=== PATIENT | female | born 1985 | race Caucasian/White ===

== ENCOUNTER 2019-06-26 18:49 | Emergency (ER) | payer SELFPAY ==
[~2019-06-26] VITALS: Ht 167.7 cm; Wt 122.9 kg
[~2019-06-26 18:49] MED LIST: HYOS0.3710 PO; IBP600T1 PO; MICO25CR2 VG; OXYC-12 PO; PREN-115 PO
--- NOTE | 2019-06-26 19:33 | ED Upper Extremity ---
General Chief Complaint: Upper Extremity Stated Complaint: INJ RT HAND Nursing Triage Note: shut R hand in car door, wants to know if middle and ring finger are broken Nursing Sepsis Screen: No Definite Risk Source: patient Exam Limitations: no limitations History of Present Illness Date Seen by Provider: Jun 26, 2019 Time Seen by Provider: 19:02 Initial Comments To ER or with reports of pain to the middle and ring finger right hand after shutting it in a car door, she states the door closed all the way. Onset: just prior to arrival Severity: moderate Pain/Injury Location: right 3rd finger, right 4th finger Method of Injury: direct blow Modifying Factors: Worse With Movement Allergies and Home Medications Allergies Coded Allergies: No Known Drug Allergies (Unverified , 11/11/11) Patient Home Medication List Home Medication List Reviewed: Yes Review of Systems Constitutional: see HPI EENTM: see HPI Respiratory: no symptoms reported Cardiovascular: no symptoms reported Genitourinary: no symptoms reported Musculoskeletal: see HPI Skin: no symptoms reported Psychiatric/Neurological: No Symptoms Reported Past Hdwqhuv-Luqeqv-Ldtdub Hx Patient Social History Alcohol Use: Denies Use Recreational Drug Use: No 2nd Hand Smoke Exposure: No Recent Foreign Travel: No Contact w/Someone Who Travel: No Recent Infectious Disease Expo: No Recent Hopitalizations: No Immunizations Up To Date Tetanus Booster (TDap): More than 5yrs PED Vaccines UTD: No Seasonal Allergies Seasonal Allergies: No Past Medical History Surgeries: No Respiratory: No Cardiac: No Neurological: No Last Menstrual Period: Jun 26, 2019 Reproductive Disorders: No Gastrointestinal: No Musculoskeletal: No Endocrine: No Cancer: No Psychosocial: No Integumentary: No Blood Disorders: No Adverse Reaction/Blood Tranf: No Physical Exam Vital Signs Vital Signs - First Documented 06/26/19 18:55 Temp 36.8 Pulse 88 Resp 18 B/P (MAP) 146/102 (117) Capillary Refill : Less Than 3 Seconds Height, Weight, BMI Height: 5'6" Weight: 200lbs. oz. 90.775775bj; 43.00 BMI Method:Stated General Appearance: WD/WN, no apparent distress HEENT: PERRL/EOMI, normal ENT inspection Respiratory: no respiratory distress, no accessory muscle use Shoulder: normal inspection, non-tender Elbow/Forearm: normal inspection, non-tender Wrist: Yes normal inspection, Yes non-tender Hand: Right, limited ROM, soft tissue tenderness (no open wounds, no ecchymosis at this time.) Neurologic/Psychiatric: alert, normal mood/affect, oriented x 3 Skin: normal color, warm/dry Progress/Results/Core Measures Results/Orders My Orders Orders - NOELLE YEN APRN Hand, Right, 3 Views (06/26/19 19:33) Vital Signs/I&O 06/26/19 18:55 Temp 36.8 Pulse 88 Resp 18 B/P (MAP) 146/102 (117) Blood Pressure Mean: 117 Departure Impression Primary Impression: Contusion of hand Qualified Codes: S60.221A - Contusion of right hand, initial encounter Disposition: HOME, SELF-CARE Condition: Stable Departure-Patient Inst. Decision time for Depature: 20:25 Referrals: [facility] (PCP/Family) Primary Care Physician Patient Instructions: Contusion (DC) Add. Discharge Instructions: 1. Return to ER for any concerns 2. See her doctor next week for recheck All discharge instructions reviewed with patient and/or family. Voiced understanding. NOELLE YEN APRN Jun 26, 2019 19:33
--- NOTE | 2019-06-26 20:03 | Diagnostic Imaging Report ---
HAND, RIGHT, 3 VIEWS COMPARISON: None available. INDICATION: Trauma, crush injury to fingers. TECHNIQUE: PA, oblique and lateral views of the hand. FINDINGS: No fracture or traumatic malalignment. No radiopaque foreign body. Joint spaces are well-maintained. No radiopaque foreign body. IMPRESSION: 1. No acute fracture or malalignment. Dictated by: Dictated on workstation # [id number]
[2019-06-26 20:32] VITALS: BP 138/98
== END 2019-06-26 20:32 | disposition home or self-care (01) ==
LOC: EDUNIT# 18:49 → ER 18:50
DX: S60.221A Contusion of right hand, initial encounter (principal); W23.1XXA Caught, crushed, jammed, or pinched between stationary objects, initial encounter
CPT/HCPCS: 73130

== ENCOUNTER 2019-09-19 19:12 | Emergency (ER) | payer SELFPAY ==
[~2019-09-19] VITALS: Ht 168 cm; Wt 123.6 kg
--- OUTSIDE RECORDS SUMMARY | 2019-09-19 19:19 | XMS REPORT ---
Author Author Dejah Carlson Organization [facility] Address [address] [place] [address] Care Team Providers Care Pullboat Engineer Name Role Phone HECTOR Carlson Unavailable PROBLEMS Type Condition ICD9-CM Code ZGB81-CN Code Onset Dates Condition S tatus SNOMED Code Problem History of irregular menstrual bleeding Z87.42 Active 320480402 Problem Encounter for counseling regarding contraception Z 30.9 Active 54683433 Problem Lumbago with sciatica, left side M54.42 Active 379656949 Problem Lumbago with sciatica, right side M54.41 Active 858800121398046 Problem Female hirsutism L68.0 Active 673 86213 Problem Body mass index (BMI) of 40.1-44.9 in adult Z68.41 Active 581787457 Problem BMI 40.0-44.9, adult Z68.41 Active 440846005 Problem Pre-diabetes R73.09 Active 7715749 ALLERGIES No Information ENCOUNTERS Encounter Location Date Diagnosis [facility] [address] [id number] [address] [place] [id number] Nov, Thrush, oral B37.0 and Tatto o reaction L92.3 [facility] [address] [id number] [address] [place] [phone] August, Pharyngitis due to other org anism J02.8 [facility] [address] [facility] [id number] [address] [place] [phone] August, Pharyngitis, unspecified isela ology J02.9 and Sore throat J02.9 [facility] [address] [facility] [id number] [address] [place] [phone] Jun, Lumbago with sciatica, left side M54.42 and Lumbago with sciatica, right side M54.41 [place] [address] [id number] 15 May, 2016 Pain with urination R30.9 an d Vaginal discharge N89.8 [place] [address] [address] Apr, Acute non-recurrent maxillar y sinusitis J01.00 ; Cough R05 and Pre- diabetes R73.09 [place] [address] [address] Feb, [place] [address] [address] 24 May, 2015 [place] [address] [id number] Apr, [place] [address] [address] Apr, Irregular menses N92.6 ; BMI 40.0-44.9, adult Z68.41 ; Pre-diabetes R73.09 ; Encounter for counseling regarding contraception Z30.9 and Family history of diabetes mellitus Z83.3 [place] [address] [address] 07 Apr, 2015 Amenorrhea N91.2 ; Female hi rsutism L68.0 and History of irregular menstrual bleeding Z87.42 [place] [address] [address] 06 Apr, 2015 Amenorrhea N91.2 ; Body mass index (BMI) of 40.1-44.9 in adult Z68.41 ; Female hirsutism L68.0 ; History of irregular menstrual bleeding Z87.42 ; Encounter for counseling regarding contraception Z30.9 and Weight gain R63.5 [place] [address] [address] Mar, 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 and Capsulitis M77.9 [facility] [address] [id number] [address] [place] [address] Jan, Foot pain, right M79.671 [facility] [address] [id number] [address] [place] [address] 15 Jan, 2015 Foot pain, right M79.671 [facility] [address] [id number] [address] [place] [address] 14 Jan, 2015 Foot pain, right M79.671 [facility] [address] [id number] [address] [place] [address] Jul, [facility] [address] [id number] [address] [place] [phone] Jul, [facility] [address] [id number] [address] [place] [phone] May, [facility] [address] [id number] [address] [place] [phone] May, [facility] [address] [id number] [address] [place] [phone] May, [facility] [address] [id number] [address] [place] [phone] May, [facility] [address] [id number] [address] [place] [phone] Apr, [facility] [address] [id number] [address] [place] [address] Apr, [facility] [address] [id number] [address] [place] [phone] Apr, [facility] [address] [id number] [address] [place] [phone] Apr, [facility] [address] [id number] [address] [place] [phone] Mar, [facility] [address] [id number] [address] [place] [phone] 29 Mar, 2014 [facility] [address] [id number] [address] [place] [address], [place] [address] 28 Mar, 2014 [facility] [address] [id number] [address] [place] [address], [place] [address] 24 Mar, 2014 [facility] [address] [id number] [address] [place] [address], [place] [address] Mar, [facility] [address] [id number] [address] [place] [address], [place] [address] Mar, [facility] [address] [id number] [address] [place] [address], [place] [address] Mar, [facility] [address] [id number] [address] [place] [address], [place] [address] Mar, [facility] [address] [id number] [address] [place] [address], [place] [address] 15 Mar, 2014 [facility] [address] [id number] [address] [place] [address], [place] [address] Mar, [facility] [address] [id number] [address] [place] [address], [place] [address] Mar, [facility] [address] [id number] [address] [place] [address], [place] [address] Mar, [facility] [address] [id number] [address] [place] [address], [place] [address] Nov, [facility] [address] [id number] [address] [place] [address], [place] [address] Nov, [facility] [address] [id number] [address] [place] [address], [place] [address] Apr, [facility] [address] [id number] [address] [place] [address], [place] [address] Mar, [facility] [address] [id number] [address] [place] [address], [place] [address] Mar, [facility] [address] [id number] [address] [place] [phone] Mar, [facility] [address] [id number] [address] [place] [phone] Mar, [facility] [address] [id number] [address] [place] [phone] Feb, [facility] [address] [id number] [address] [place] [phone] Feb, [facility] [address] [id number] [address] [place] [phone] August, [facility] [address] [id number] [address] [place] [phone] Mar, [facility] [address] [id number] [address] [place] [phone] Jan, [facility] [address] [id number] [address] [place] [phone] Jan, IMMUNIZATIONS No Known Immunizations SOCIAL HISTORY Never Assessed REASON FOR VISIT PLAN OF CARE VITAL SIGNS Height 66 in 2014-04-07 Weight 252.7 lbs 2014-04-07 Temperature 97.8 degrees Fahrenheit 2014-04-07 Heart Rate 79 bpm 2014-04-07 Respiratory Rate 18 2014-04-07 Blood pressure systolic 134 mmHg 2014-04-07 Blood pressure diastolic 79 mmHg 2014-04-07 MEDICATIONS No Known Medications RESULTS No Results PROCEDURES Procedure Date Ordered Result Body Site X-RAY EXAM OF KNEE, 1 OR 2 Apr 07, 2014 INSTRUCTIONS MEDICATIONS ADMINISTERED No Known Medications
--- OUTSIDE RECORDS SUMMARY | 2019-09-19 19:19 | XMS REPORT ---
Author Author [employer] [facility] [employer] [facility] Address [address] [address] Care Team Providers Care Assembler Faucets Name Role Phone RAMÓN SEBASTIAN Unavailable Unavailable RODRÍGUEZ VIZCARRA Unavailable Unavailable HARINI SHAH Unavailable Unavailable [facility] Unavailable CHIARA SCOTT Unavailable CHIARA SCOTT Unavailable ROLLY LANGE Unavailable HIPOLITO HINES Unavailable Migration, Doctor Unavailable Unavailable Migration, Doctor Unavailable Unavailable Migration, Doctor Unavailable Unavailable Migration, Doctor Unavailable Unavailable Migration, Doctor Unavailable Unavailable Migration, Doctor Unavailable Unavailable zzSANCHEZ, HECTOR Unavailable zzSANCHEZ, HECTOR Unavailable NEMO Oneill Unavailable zzSANCHEZ, HECTOR Unavailable zzSANCHEZ, HECTOR Unavailable zzSANCHEZ, HECTOR Unavailable zzSANCHEZ, HECTOR Unavailable [facility] PCP [phone] BETY GONSALES MD Unavailable Unavailable NOELLE YEN APRN Unavailable Unavailable PETROS CASTRO Unavailable zzARIELA WALKER Unavailable zzSANCHEZ, HECTOR Unavailable Unavailable Unavailable Unavailable Unavailable Unavailable Unavailable Unavailable Unavailable Allergies The data below is from unstructured sources Substance Reaction Event Type N.K.D.A. Info Not Available Non Drug Allergy Allergen Type Severity Reaction Status Last Updated No Known Drug Allergies Active 11/11/11 No Information Medications Current Medications Medication Ingredient Drug Dose Dates Status Sig Sig Care Class(es) (Normalized) (Original) Provid er amoxicillin amoxicillin Penicillin- 500 mg 09-27-19 Active no Amoxicillin no 500 mg oral Translation class 18 - information 500 mg name capsule (1 s: [ Antibacteri 10-07-19 Orally every source.) Amoxicillin al 18 8 hrs 1 500 mg] capsule 8h August, Sep, 10 day(s) Active azithromyci Azithromyci Macrolide 500 mg 04-26-20 Active take 2 Azithromycin no n 250 mg n Antimicrobi 14 tablets by 250 mg 2 nam e oral tablet Translation al mouth once Tablet by (1 source.) s: [ daily, then Oral route Azithromyci take 1 on day 1 n 250 mg] tablet by then take 1 mouth, then daily for 4 take 1 days Mar, tablet by 2013 Active mouth once daily cyclobenzap cyclobenzap Muscle 10 mg 05-28-19 Active no cyc lobenzapr no rine rine Relaxant 15 information ine 10 mg 1 na me hydrochlori Translation tablet 1 de 10 mg s: [ time per day oral tablet cyclobenzap PRN Apr, (1 source.) rine 10 mg] 2014 Active mupirocin Mupirocin RNA 2 % 05-28-19 Active no Bactrob an 2 no 0.02 mg/mg Translation Synthetase 15 information % 1 favio by name nasal s: [ Inhibitor Topical ointment (1 Bactroban 2 Antibacteri route 2 source.) %] al times per day for 14 day(s) Apr, Active nabumetone nabumetone Nonsteroida 500 mg 07-04-19 Active no Nabumetone no 500 mg oral Translation l 18 - information 500 mg name tablet (1 s: [ Anti-inflam 09-02-19 Orally Twice source.) Nabumetone matory Drug 18 a day 1 500 mg] tablet 12h Jun, August, 30 day(s) Active nystatin nystatin Polyene 758547 12-19-19 Active take 4 mL by [place] statin no [id number] Translation Antifungal [IU]/m 18 - mouth four [id number] na me unt/ml oral s: [ L 01-02-20 times daily UNIT/ML suspension Nystatin 18 Mouth/Throat (1 source.) [id number] Four times a UNIT/ML] day 4 ml 6h Nov, Dec, 14 days Active predniSONE predniSONE Corticoster 40 mg 07-04-19 Active no PredniSONE no 20 mg oral Translation oid 18 - information 20 mg Orall y name tablet (1 s: [ 07-09-19 Once a day 2 source.) PredniSONE 18 tablets 24h 20 mg] Jun, Jun, 05 days Active sulfamethox Sulfamethox Dihydrofola 05-28-19 Active take 1 Bactr im DS no azole 800 azole / te 15 tablet by 800-160 mg 1 nam e mg / Trimethopri Reductase mouth twice tablet by trimethopri m Inhibitor daily Oral route 2 m 160 mg Translation Antibacteri times per oral tablet s: [ al, day for 10 (1 source.) Bactrim DS Sulfonamide day(s) 30 800-160 mg] Antimicrobi Apr, 2014 al Active Completed/Discontinued Medications Medication Ingredient Drug Dose Dates Status Sig Sig Care Class(es) (Normalized) (Original) Provid er no guaiFENesin no 05-03-19 no no Mucinex D no information information 17 informat information 120-1200 MG name (1 source.) ion Orally every 12 hrs 1 tablet as needed 12h Apr, Not-Taking no Miconazole no 12-16-19 Complete no Miconazole no information Nitrate information 12 - d information Nitrat e name (1 source.) 04-11-20 Discontinued 12 0 VAGINAL Bedtime 3 December 16, 2011 12:44pm April 11, 2012 1 APPLICATORFU L Problems Problem Normalized Date Last Normalized Normalized Provider Fa cility Classification Problem(s) Recorded Problem Problem Sta tus Duration Unclassified Body mass Chronic Active ROLLY LANGE Commu nittram (20 sources.) index 40+ - 30215 [facility] severely obese [facility] Translations: [place] ([address]258) [ Body mass index (BMI) of 40.1-44.9 in adult, BMI 40.0-44.9, adult, Body mass index (BMI) of 40.1-44.9 in adult, BMI 40.0-44.9, adult] Mycoses (17 Candidal Episodic Active HIPOLITO RICHARD Community sources.) stomatitis [facility] [address] [facility] Translations: [facility] [ - Thrush, [place] ([address]78) oral B37.0, - Thrush, oral B37.0] External cause Caught, Episodic Active NOELLE YEN [facility] Via codes: Other crushed, COLLECTION SUPPORT SPECIALIST [facility] specified and jammed, or Hospital - classifiable pinched [place] (1 source.) between (52039) stationary objects, initial encounter Superficial Contusion of Episodic Active NOELLE YEN [facility] Via injury; hand [employer]LE[employer] SU[employer] [facility] contusion (3 Translations: Hospital - sources.) [ CONTUSION OF [place] RIGHT HAND, (38782) INITIAL ENCOUNT] Other lower Cough Episodic Active NOELLE YEN , [facility] Via respiratory COLLECTION SUPPORT SPECIALIST [facility] disease (1 Hospital - source.) [place] (34983) Other lower Cough Episodic Active CHIARA Silva y respiratory Translations: [address] [facility] disease (20 [ - Cough R05, of [place] sources.) - Cough R05] [place] (37698) Other skin Female Episodic Active Doctor Community disorders (12 hirsutism [facility] sources.) Translations: of [facility] [ Female [place] (70064) hirsutism] Other skin Foreign body Episodic Active CELESTE Communit y disorders (17 granuloma of [facility] [address] [facility] sources.) the skin and of [facility] subcutaneous [place] (49047) tissue Translations: [ - Tattoo reaction L92.3, - Tattoo reaction L92.3] Other female H/O: Episodic Active ROLLY LANGE [facility] ity genital inter-menstrua [address] [facility] disorders (19 l bleeding of [facility] sources.) Translations: [place] (57516) [ History of irregular menstrual bleeding, History of irregular menstrual bleeding] Acquired foot Hallux valgus Chronic Active PETROS MATTHEW Community deformities (3 (acquired), [address] Health [facility] sources.) unspecified of [facility] foot [place] (14804) Translations: [ - 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] Spondylosis; Lumbago no information Active Doctor Tyler walls intervertebral co-occurrent [facility] disc with of [facility] disorders; right-side [place] (44289) other back sciatica problems (9 Translations: sources.) [ Lumbago with sciatica, right side] Spondylosis; Lumbago with Episodic Active CHIARA SONIA Com munity intervertebral sciatica, left [address] [facility] disc side of [facility] disorders; Translations: [place] (38270) other back [ - Lumbago problems (20 with sciatica, sources.) left side M54.42, Lumbago with sciatica, left side, Lumbago with sciatica, left side, - Lumbago with sciatica, right side M54.41, Lumbago with sciatica, right side, Lumbago with sciatica, right side, - Lumbago with sciatica, left side M54.42, - Lumbago with sciatica, right side M54.41, Lumbago with sciatica, left side, Lumbago with sciatica, right side] Other female Other Episodic Active ROLLYCARTER LANGE [facility] ity genital specified [address] [facility] disorders (19 noninflammator of [facility] sources.) y disorders of [place] (58621) vagina Translations: [ - Vaginal discharge N89.8, - Vaginal discharge N89.8] Other Pain in right Episodic Active [facility] connective foot [address] [facility] tissue disease Translations: of [facility] (20 sources.) [ - Foot pain, [place] (77071) right M79.671, - Foot pain, right M79.671] Procedures Procedure Normalized Procedure Procedure Result Performer Facility Date 04-20-2014 Antibody mycoplsm no information no name [facility] (82511) 04-20-2014 Blood count complete no information no name [facility] auto&auto difrntl wbc [facility] (81354) 04-20-2014 Collection venous no information no name [facility] blood venipuncture [facility] (33005) 04-20-2014 Comprehensive no information no name [facility] metabolic panel [facility] (48609) 02-10-2015 Diagnostic radiologic no information HARINI Romo [facility] - examination [facility] 02-10-2015 [place] (46885) - 02-10-2015 04-20-2014 Heterophile antibodies no information no name [facility] screen [facility] (72895) 09-26-2017 Iaadiadoo no information no name [facility] ealth streptococcus group a [facility] (11792) 09-24-2017 Iaadiadoo no information no name [facility] eaprovidence hospital streptococcus group a [facility] (27042) 07-03-2017 Ketorolac tromethamine no information no name inj [facility] (86953) 06-26-2019 Radiography of hand no information no name [facility] (52379) 04-07-2014 Radiologic examination no information no name knee 1/2 views [facility] (92288) 07-03-2017 Therapeutic no information no name [facility] hospital prophylactic/dx [facility] injection subq/im [place] (69908) 12-21-2013 Urnls dip stick/tablet no information no name rgnt auto w/o [facility] (78575) Immunizations Normalized Immunization Date Notes Care Provider Facili ty Immunization TORADOL (IM) 60 07-03-2017 - no information CHIARA SCOTT 14851 MG/2ML (UP TO 15 MG) 07-03-2017 [facility] st Translations: [ [place] (00301) TORADOL (IM) 60 MG/2ML (UP TO 15 MG)] Results Test Name Value Interpretation Reference Range Date Time Fa cility (Normalized) (Normalized) (Medline Reference) strep a (in house) on null STREP A (IN Negative (no code) [facility] (07092) STREP A (IN + (no code) [facility]) [facility] (43764) STREP A (IN [id number] (no code) [facility] (19542) STREP A (IN 01/26/2018 (no code) [facility] (02213) strep a (in house) on 2017-09-24 STREP A (IN Negative (no code) 09-24-2017 [facility]) 13:00-0400 [facility] (70049) STREP A (IN + (no code) 09-24-2017 [facility]) 13:00-0400 [facility] (64974) STREP A (IN [id number] (no code) 09-24-2017 [facility]) 13:00-0400 [facility] (87075) STREP A (IN [id number] (no code) 09-24-2017 [facility]) 13:00-0400 [facility] (21394) other on 2017-09-24 Exp date [id number] (no code) [facility] (56409) Lot # Negative (no code) [facility] (05051) imm/path on 2016-06-16 Bacteria Note (no code) 06-16-2016 Not Available identified Aer 17:34-0500 (90912) cx Nom (Genital specimen) other on 2016-05-04 Albumin/Globulin 1.7 {ratio} (no code) 1 - 2.5 {ratio} 7 Not Available [Mass ratio] 06:59-0500 (22888) Cholesterol in 18 mg/dL (no code) 05-04-2016 Not Availab le VLDL [Mass/Vol] 07:21-0500 (07941) Erythrocyte 13.5 % (no code) 11.6 - 14.6 % 05-04-2016 Not Av ailable distribution 06:02-0500 (62156) width (RBC) [Ratio] Globulin (S) 2.5 g/dL (no code) 2 - 3.5 g/dL 05-04-2016 Not Av ailable [Mass/Vol] 06:59-0500 (06686) Immature 0.0 10*3/uL (no code) 0 - 0.2 10*3/uL 05-04-2016 Not Available granulocytes 06:02-0500 (79169) (Bld) [#/Vol] Immature 0 % (no code) 0 - 0.5 % 05-04-2016 Not Availabl e granulocytes/100 06:02-0500 (69194) WBC (Bld) MCHC (RBC) 32.1 g/dL (no code) 32 - 36 g/dL 05-04-2016 Not Avai lable [Mass/Vol] 06:02-0500 (80466) metabolic panel on 2016-05-04 Albumin 4.3 g/dL (no code) 3.4 - 5.4 g/dL 05-04-2016 Not Mckenzie ilable [Mass/Vol] 06:59-0500 (29553) ALP [Catalytic 88 U/L (no code) 44 - 147 U/L 05-04-2016 Not Available activity/Vol] 07:010500 (13964) ALT [Catalytic 18 U/L (no code) 4 - 40 U/L 05-04-2016 Not Av ailable activity/Vol] 07:010500 (68106) AST [Catalytic 19 U/L (no code) 10 - 34 U/L 05-04-2016 Not A vailable activity/Vol] 06:59-0500 (87656) Bilirubin 0.3 mg/dL (no code) 0.1 - 1.2 mg/dL 05-04-2016 Not Av ailable [Mass/Vol] 06:59-0500 (45689) Calcium 9.1 mg/dL (no code) 8.5 - 10.2 mg/dL 05-04-2016 Not A vailable [Mass/Vol] 06:59-0500 (39169) Chloride 101 mmol/L (no code) 95 - 106 mmol/L 05-04-2016 Not A vailable [Moles/Vol] 06:51-0500 (46524) CO2 [Moles/Vol] 25 mmol/L (no code) 23 - 29 mmol/L 05-04-2016 N ot Available 06:590500 (36318) Creatinine 0.80 mg/dL (no code) 05-04-2016 Not Available [Mass/Vol] 07:040500 (79515) GFR/1.73 sq M 116 (no code) 90 - 120 05-04-2016 Not Avai lable predicted among mL/min/{1.73_m2} mL/min/{1.73_m2} 07:040500 (09755) blacks MDRD (S/P/Bld) [Vol rate/Area] GFR/1.73 sq M 101 (no code) 90 - 120 05-04-2016 Not Avai lable predicted among mL/min/{1.73_m2} mL/min/{1.73_m2} 07:040500 (22537) non-blacks MDRD (S/P/Bld) [Vol rate/Area] Glucose 101 mg/dL (H) 60 - 125 mg/dL 05-04-2016 Not Mckenzie ilable [Mass/Vol] 07:01-0500 (60970) Potassium 4.8 mmol/L (no code) 3.7 - 5.2 mmol/L 05-04-2016 Not Available [Moles/Vol] 06:51-0500 (78282) Protein 6.8 g/dL (no code) 6.4 - 8.3 g/dL 05-04-2016 Not Mckenzie ilable [Mass/Vol] 06:59-0500 (33080) Sodium 140 mmol/L (no code) 135 - 145 mmol/L 05-04-2016 Not Available [Moles/Vol] 06:51-0500 (22156) Urea nitrogen 10 mg/dL (no code) 7 - 20 mg/dL 05-04-2016 Not A vailable [Mass/Vol] 06:59-0500 (59716) Urea 13 mg/mg (no code) 6 - 22 mg/mg 05-04-2016 Not Avail able nitrogen/Creatin 07:04-0500 (05906) ine [Mass ratio] hematology on 2016-05-04 Basophils (Bld) 0.1 10*3/uL (no code) 0 - 0.3 10*3/uL 05-04-2016 Not Available [#/Vol] 06:02-0500 (63992) Basophils/100 1 % (no code) 0.5 - 1 % 05-04-2016 Not Avai lable WBC (Bld) 06:02-0500 (46592) Eosinophils 0.4 10*3/uL (no code) 0.05 - 0.5 05-04-2016 Not Mckenzie ilable (Bld) [#/Vol] 10*3/uL 06:02-0500 (58005) Eosinophils/100 5 % (no code) 1 - 4 % 05-04-2016 Not Av ailable WBC (Bld) 06:02-0500 (91130) Hematocrit (Bld) 45.2 % (no code) 36.1 - 50.3 % 05-04-2016 N ot Available [Volume 06:020500 (82949) fraction] Hemoglobin (Bld) 14.5 g/dL (no code) 12.1 - 17.2 g/dL 05-04-2016 Not Available [Mass/Vol] 06:02-0500 (98019) Lymphocytes 3.2 10*3/uL (H) 0.9 - 2.9 05-04-2016 Not Avai lable (Bld) [#/Vol] 10*3/uL 06:02-0500 (82865) Lymphocytes/100 44 % (no code) 20 - 40 % 05-04-2016 Not Av ailable WBC (Bld) 06:02-0500 (77963) MCH (RBC) 27.4 pg (no code) 27 - 31 pg 05-04-2016 Not Availab le [Entitic mass] 06:020500 (47791) MCV (RBC) 85 fL (no code) 80 - 100 fL 05-04-2016 Not Availa ble [Entitic vol] 06:02-0500 (44317) Monocytes (Bld) 0.6 10*3/uL (no code) 0.3 - 0.9 05-04-2016 Not Available [#/Vol] 10*3/uL 06:02-0500 (27880) Monocytes/100 8 % (no code) 2 - 8 % 05-04-2016 Not Avai lable WBC (Bld) 06:02-0500 (88085) Neutrophils 3.1 10*3/uL (no code) 1.7 - 7 10*3/uL 05-04-2016 No t Available (Bld) [#/Vol] 06:02-0500 (96497) Neutrophils/100 42 % (no code) 40 - 60 % 05-04-2016 Not Av ailable WBC (Bld) 06:02-0500 (99206) Platelets (Bld) 297 10*3/uL (no code) 150 - 450 05-04-2016 Not Available [#/Vol] 10*3/uL 06:02-0500 (38552) RBC (Bld) 5.29 10*6/uL (H) 4.2 - 6.1 05-04-2016 Not Avail able [#/Vol] 10*6/uL 06:02-0500 (31703) WBC (Bld) 7.3 10*3/uL (no code) 3.5 - 10.5 05-04-2016 Not Avail able [#/Vol] 10*3/uL 06:02-0500 (11859) cardiac on 2016-05-04 Cholesterol 158 mg/dL (no code) 180 - 200 mg/dL 05-04-2016 Not Available [Mass/Vol] 07:170500 (60338) Cholesterol in 35 mg/dL (L) 05-04-2016 Not Availab le HDL [Mass/Vol] 07:0500 (80187) Cholesterol in 105 mg/dL (H) 0 - 100 mg/dL 05-04-2016 Not Available LDL [Mass/Vol] 07:0500 (30545) Triglyceride 90 mg/dL (no code) 0 - 150 mg/dL 05-04-2016 Not A vailable [Mass/Vol] 07:0500 (36905) Vital Signs Vital Sign Value Interpretation Reference Date Time Care Prov ider Facility (Normalized) (Normalized) Range BMI (Body Mass 40.6 kg/m2 (no code) 15 - 25 kg/m2 12-18-2017 SIMON RICHARD Community Index) 18:15-[address] [place] [address] (56154) BMI (Body Mass 38.73 kg/m2 (no code) 15 - 25 kg/m2 09-26-2017 W LUIS MANUEL SCOTT Community Index) 15:40-[address] [place] [address] (00371) BMI (Body Mass 39.39 kg/m2 (no code) 15 - 25 kg/m2 09-24-2017 M JOSE JUAN LANGE Community Index) 10:20-[address] [place] [address] (03489) BMI (Body Mass 38.38 kg/m2 (no code) 15 - 25 kg/m2 07-03-2017 W LUIS MANUEL SCOTT Community Index) 14:45-[address] [place] [address] (75370) Body height 167.64 cm (no code) cm 04-07-2014 HECTOR Co [facility]mun[facility] 14:13-[address] ([address]761) Body height 167.64 cm (no code) cm 05-15-2011 PETROS LEVY [facility] 12:00-[address] [place] [address] (78827) Body 97.9 [degF] (no code) 97.8 - 99.0 12-18-2017 [facility] 18:15-[address] [address] [place] [address] nter [facility] (79974) Body 98.8 [degF] (no code) 97.8 - 99.0 09-26-2017 CHIARA [facility] Temperature [degF] 15:40-0400 18078 [facility] (85571) Body 97.8 [degF] (no code) 97.8 - 99.0 09-24-2017 [facility] Temperature [degF] 10:20-[id number] [place], [place] [address]e r [facility] (25295) Body 98.1 [degF] (no code) 97.8 - 99.0 07-03-2017 [facility] Temperature [degF] 14:45-[address] [place] [address] (15254) Body 98 [degF] (no code) 97.8 - 99.0 05-28-2014 HECTOR [facility] Temperature [degF] 09:20-0500 [facility] [address] ([address]662) Body 99.2 [degF] (no code) 97.8 - 99.0 04-20-2014 [facility] [[facility] 17:20-0500 [facility] [address] (94523) Body 97.8 [degF] (no code) 97.8 - 99.0 04-07-2014 [facility] temperature [degF] 14:13-0500 [facility] [address] (38616) Body 97.4 [degF] (no code) 97.8 - 99.0 12-21-2013 NEMO [facility] Temperature [degF] 17:06-0400 [address] [facility] (76273) Body 97.3 [degF] (no code) 97.8 - 99.0 05-15-2011 PETROS FELICIANO [facility] temperature [degF] 12:00-[id number] [place] [address] (59032) Body weight 115.67 kg (no code) kg 05-28-2014 HECTOR [facility] 09:200500 [address] (96992) Body weight 113.49 kg (no code) kg 04-20-2014 HECTOR [facility] 17:200500 [address] (16963) Body weight 114.62 kg (no code) kg 04-07-2014 HECTOR Co [facility] 14:130500 [address] (11504) Body weight 109.05 kg (no code) kg 12-21-2013 NEMOCHAYITO martinezROSA [facility] 17:06-[address] [place] [address] (32909) Body weight 79.02 kg (no code) kg 05-15-2011 PETROS MERCEDES [facility] 12:000500 [address] [place] [address] (40514) Height 167.64 cm (no code) cm 12-18-2017 HIPOLITO [facility] 18:15-[address] [place] [address] (57803) Height 167.64 cm (no code) cm 09-26-2017 CHIARA Romo [facility] 15:40-[address] [place] [address] (70740) Height 167.64 cm (no code) cm 09-24-2017 [facility] 10:20-[address] [place] [address] (67579) Height 167.64 cm (no code) cm 07-03-2017 CHIARA Romo [facility] 14:45-[address] [place] [address] (53334) Height 167.64 cm (no code) cm 05-28-2014 HECTOR Commu nity 09:200500 [address] (30783) Height 167.64 cm (no code) cm 04-20-2014 HECTOR Commu nity 17:200500 [address] ([address]) Height 167.64 cm (no code) cm 12-21-2013 NEMO Oneill [facility] 17:06-[address] [place] [address] (28818) Weight 114.13 kg (no code) kg 12-18-2017 HIPOLITO danielle 18:15-[address] [place] [address] (20737) Weight 108.86 kg (no code) kg 09-26-2017 CHIARA Romo [facility] 15:40-[address] [place] [address] (32996) Weight 110.72 kg (no code) kg 09-24-2017 ROLLY LANGE [facility] 10:20-[address] [place] [address] (81786) Weight 107.87 kg (no code) kg 07-03-2017 CHIARA SCOTT Clarissa [facility] 14:45-[address] [place] [address] (98844) Interventions No Information Plan of Treatment Normalized Care Care Detail Care Activity Date Care Provider F acility Activity Patient Education Contusion (DC) no information [facility] [address] [place] [address] (60989) Patient referral no information no information [facility] [facility] [address] [place] [address] (34927) Goals Patient Goal Desired Goal no information no information Social History Normalized Code Original Code Date Value no information no information 04-19-2014 Denies Use no information no information 07-06-2012 No no information no information 07-09-2012 Denies Sex Assigned At Sex Assigned At no information F emale Functional Status The data below is from unstructured sourcesNo functional status results.No Functional Status information availableNo Functional Status information available Mental Status The data below is from unstructured sourcesNo Mental Status Information Available Encounters Encounter Normalized Encounter Encounter Diagnosis Care Provi kaveh Organization Date Type 09-26-2017 (ACUTE) Acute Visit Acute pharyngitis due CHIARA SLATER [facility] other specified phone) (no phone) 09-26-2017 organisms - 09-26-2017 09-24-2017 (ACUTE) Acute Visit Acute pharyngitis, ROLLY Roland ([facility] unspecified phone) ROLLY [place] (no kizzy ne) 09-24-2017 (no phone) - 09-24-2017 05-04-2015 (ACUTE) Acute Visit AmenorrheaSEBASTIAN [facility] [place] - unspecified (no phone) (no phone) 05-04-2015 - 05-04-2015 02-09-2015 (ACUTE) Acute Visit Pain in right foot HARINI MADL (no phone) [facility] [place] - (no phone) 02-09-2015 - 02-09-2015 04-15-2015 (CON20) Consult Hallux valgus RODRÍGUEZ VIZCARRA (no phone ) [facility] [place] - (acquired), (no phone) 04-15-2015 unspecified foot - 04-15-2015 06-22-2015 (DM-ED F/U) Diabetes no information HARINI MADL (no phone) [facility] [place] - Education Follow-up (no phone) 06-22-2015 - 06-22-2015 03-27-2016 (DM-MGMT) Diabetes no information HARINI MADL (no p gene) [facility] [place] - Management (no phone) 03-27-2016 - 03-27-2016 05-05-2015 (LAB) lab Amenorrhea, SEBASTIAN Rodriguez [facility] [place] - unspecified (no phone) (no phone) 05-05-2015 - 05-05-2015 06-13-2016 (SD ACUTE) Same Day Painful micturition, JACYLN SANDRA Lewis (no phone) [facility] [place] - Acute unspecified (no phone) 06-13-2016 - 06-13-2016 05-03-2016 (SD ACUTE) Same Day Acute maxillary MATTHIAS David ERS (no [facility] [place] - Acute sinusitis, unspecified phone) (no phone) 05-03-2016 - 05-03-2016 12-18-2017 (WALK-IN) Walk-In Care Candidal stomatitis NATALIE HINES (no [facility] - phone) CARE (no phone) 12-18-2017 - 12-18-2017 07-03-2017 (WALK-IN) Walk-In Care Lumbago with sciatica, DANY SCOTT (no [facility] - left side phone) CARE (no phone) 07-03-2017 - 07-03-2017 05-11-2015 (WH) Womens Health Irregular SEBASTIAN garciaCarlosJIM [facility] [place] - Visit menstruation, (no phone) (no phone) 05-11-2015 unspecified - 05-11-2015 02-10-2015 (XRAY) xray Pain in right foot HARINI MADL (no phon e) [facility] [place] (no phone) 05-26-2015 [facility] [place] no information SEBASTIAN Murray MARILEEJIM [facility] [place] - (no phone) (no phone) 05-26-2015 - 05-26-2015 02-14-2015 [facility] [place] Pain in right foot HARINI MAD L (no phone) [facility] [place] - (no phone) 02-14-2015 - 02-14-2015 08-10-2014 [facility] [place] no information Doctor Migrati on (no [facility] [place] - phone) (no phone) 08-10-2014 - 08-10-2014 08-09-2014 [facility] [place] no information Doctor Migrati on (no [facility] [place] - phone) (no phone) 08-09-2014 - 08-09-2014 06-17-2014 [facility] [place] no information ARIELA GALO (no [facility] [place] - phone) Doctor (no phone) 06-17-2014 Migration (no phone) - ARIELA Palacios (no 06-17-2014 phone) Doctor Migration (no phone) ARIELA Palacios (no phone) Doctor Migration (no phone) 05-31-2014 [facility] [place] no information Doctor Migrati on (no [facility] [place] - phone) HECTOR Carlson (no phone) 05-31-2014 (no phone) Doctor - Migration (no phone) 05-31-2014 HECTORZOE Carlson (no phone) Doctor Migration (no phone) HECTOR Carlson (no phone) 05-28-2014 [facility] [place] no information HECTOR zzSANCHE Z (no [facility] [place] - phone) Doctor (no phone) 05-28-2014 Migration (no phone) - HECTOR zzSANCHEZ (no 05-28-2014 phone) Doctor Migration (no phone) HECTOR zzSANCHEZ (no phone) Doctor Migration (no phone) 05-04-2014 [facility] [place] no information HECTOR zzSANCHE Z (no [facility] [place] - phone) Doctor (no phone) 05-04-2014 Migration (no phone) - HECTRO zzSANCHEZ (no 05-04-2014 phone) Doctor Migration (no phone) HECTOR zzSANCHEZ (no phone) Doctor Migration (no phone) 04-26-2014 [facility] [place] no information HECTOR zzSANCHE Z (no [facility] [place] - phone) Doctor (no phone) 04-26-2014 Migration (no phone) - HECTOR zzSANCHEZ (no 04-26-2014 phone) Doctor Migration (no phone) HECTOR zzSANCHEZ (no phone) Doctor Migration (no phone) 04-25-2014 [facility] [place] no information Doctor Migrati on (no [facility] [place] - phone) (no phone) 04-25-2014 - 04-25-2014 04-21-2014 [facility] [place] no information Doctor Migrati on (no [facility] [place] - phone) (no phone) 04-21-2014 - 04-21-2014 04-20-2014 [facility] [place] no information HECTOR zzSANCHE Z (no [facility] [place] - phone) Doctor (no phone) 04-20-2014 Migration (no phone) - HECTOR zzSANCHEZ (no 04-20-2014 phone) Doctor Migration (no phone) HECTOR zzSANCHEZ (no phone) Doctor Migration (no phone) 04-15-2014 [facility] [place] no information HECTOR zzSANCHE Z (no [facility] [place] - phone) Doctor (no phone) 04-15-2014 Migration (no phone) - HECTOR zzSANCHEZ (no 04-15-2014 phone) Doctor Migration (no phone) HECTOR Carlson (no phone) Doctor Migration (no phone) 04-12-2014 [facility] [place] no information Doctor Migrati on (no [facility] [place] - phone) (no phone) 04-12-2014 - 04-12-2014 04-08-2014 [facility] [place] no information Doctor Migrati on (no [facility] [place] - phone) (no phone) 04-08-2014 - 04-08-2014 04-07-2014 [facility] [place] no information HECTOR Garcia (no [facility] [place] - phone) Doctor (no phone) 04-07-2014 Migration (no phone) - HECTOR Carlson (no 04-07-2014 phone) Doctor Migration (no phone) HECTOR Carlson (no phone) Doctor Migration (no phone) 12-21-2013 [facility] [place] no information NEMO Oneill (no [facility] [place] - phone) Doctor (no phone) 12-21-2013 Migration (no phone) - NEMO Oneill (no 12-21-2013 phone) Doctor Migration (no phone) NEMO Oneill (no phone) Doctor Migration (no phone) 05-15-2011 [facility] [place] no information PETROS CASTRO (no [facility] [place] - phone) (no phone) 05-15-2011 - 05-15-2011 04-17-2011 [facility] [place] no information Doctor Migrati on (no [facility] [place] - phone) (no phone) 04-17-2011 - 04-17-2011 04-09-2011 [facility] [place] no information Doctor Migrati on (no [facility] [place] - phone) (no phone) 04-09-2011 - 04-09-2011 03-02-2011 [facility] [place] no information Doctor Migrati on (no [facility] [place] - phone) (no phone) 03-02-2011 - 03-02-2011 02-28-2011 [facility] [place] no information Doctor Migrati on (no [facility] [place] - phone) (no phone) 02-28-2011 - 02-28-2011 09-12-2009 [facility] [place] no information Doctor Migrati on (no [facility] [place] - phone) (no phone) 09-12-2009 - 09-12-2009 04-20-2009 [facility] [place] no information Doctor Migrati on (no [facility] [place] - phone) (no phone) 04-20-2009 - 04-20-2009 02-08-2009 [facility] [place] no information Doctor Migrati on (no [facility] [place] - phone) (no phone) 02-08-2009 - 02-08-2009 06-26-2019 Emergency department no information (no phone) [facility] c[facility] - patient visit [facility] (no phone) 06-26-2019 06-26-2019 Emergency department no information BETY CORBIN MD [facility] - patient visit (no phone) [facility] 06-26-2019 [facility] [employer] [facility] [facility] (no phone) (no phone) [facility] CANO (no phone) 09-26-2017 Patient encounter no information no name no or ganization name NEGATED Patient encounter no information no name no or ganization name 09-24-2017 07-03-2017 Patient encounter no information no name no or ganization name Medical Equipment The data below is from unstructured sourcesNo Medical Equipment Information available Payers Normalized Payer Value Self-pay no information ([id number]) Evaluation note Note Type Note Facility Evaluation No Assessments Information Available A scension note Via [facility] ([id number]) Summary Purpose eClinicalWorks SubmissioneClinicalWorks SubmissioneClinicalWorks SubmissioneClinicalWorks SubmissioneClinicalWorks SubmissioneClinicalWorks SubmissioneClinicalWorks SubmissioneClinicalWorks Submission Advance Directives Directive Response Recor ded Date/Time Advance Directives No 8:17pm Health Care Power of Mural Painter No 04/19/14 8:17pm Organ Donor Yes 04/19/14 8:17pm Resuscitation Status Full Code 04/19/14 8:17pm Advance Directive Response Recorded Date/Time Advance Directives No April conway 2019 6:59pm Health Care Power of Mural Painter No June 26, 2019 6:59pm Organ Donor Yes June 26, 2019 6:59pm Resuscitation Status Full Code June 26, 2019 6:59pm Discharge Instructions No hospital discharge instructions. Chief Complaint and Reason for Visit Chief Complaint Upper Extremity Reason for Visit [id number] Additional Source Comments This clinical document has been generated using [employer] software that has been certified by the Office of the National Coordinator for Health Information Technology (ONC 15.99.04.3023.Diam.[id number]) and the National Committee for Carton Inspector (NCQA, as an eMeasure certified technology). FOR RECORDS PERTAINING TO PATIENTS WHO ARE OR HAVE BEEN ENROLLED IN A CHEMICAL D EPENDENCY/SUBSTANCE ABUSE PROGRAM, SOME INFORMATION MAY BE OMITTED. This clinica l summary was aggregated from multiple sources. Caution should be exercised in using it in the provision of clinical care. This summary normalizes information from multiple sources, and as a consequence, information in this document may ma terially change the coding, format and clinical context of patient data. In larry tion, data may be omitted in some cases. CLINICAL DECISIONS SHOULD BE BASED ON T HE PRIMARY CLINICAL RECORDS. [employer] provides no warranty or guara ntee of the accuracy or completeness of information in this document.The followi ng information is based on time limited clinical information UNRECOGNIZED CONTENT PROVIDED BELOW FOR UNRECOGNIZED SECTION REASON FOR VISIT thrush BeenaN, Rash on Tattoo started in July [id number]
--- OUTSIDE RECORDS SUMMARY | 2019-09-19 19:19 | XMS REPORT ---
Author Author Dejah Palacios Organization [facility] Address [address] [place] [address] Care Team Providers Care Pharmacy Account Director Name Role Phone ARIELA Palacios Unavailable PROBLEMS Type Condition ICD9-CM Code DDO05-PF Code Onset Dates Condition S tatus SNOMED Code Problem History of irregular menstrual bleeding Z87.42 Active 843990858 Problem Encounter for counseling regarding contraception Z 30.9 Active 58135406 Problem Lumbago with sciatica, left side M54.42 Active 927579467 Problem Lumbago with sciatica, right side M54.41 Active 486051852617250 Problem Female hirsutism L68.0 Active 102 45288 Problem Body mass index (BMI) of 40.1-44.9 in adult Z68.41 Active 990357248 Problem BMI 40.0-44.9, adult Z68.41 Active 195079603 Problem Pre-diabetes R73.09 Active 0359953 ALLERGIES No Information ENCOUNTERS Encounter Location Date Diagnosis [facility] [id number] [place] [id number] Nov, Thrush, oral B37.0 and Tatto o reaction L92.3 [facility] [id number] [place] [id number] August, Pharyngitis due to other org anism J02.8 [facility] [address] [facility] [id number] [address] [place] [id number] August, Pharyngitis, unspecified isela ology J02.9 and Sore throat J02.9 [facility] IN [facility] [address] [facility] [id number] [address] [place] [address] Jun, Lumbago with sciatica, left side M54.42 and Lumbago with sciatica, right side M54.41 [place] [address] [id number] 15 May, 2016 Pain with urination R30.9 an d Vaginal discharge N89.8 [place] [address] [address] Apr, Acute non-recurrent maxillar y sinusitis J01.00 ; Cough R05 and Pre- diabetes R73.09 [place] [address] [id number] Feb, [place] [address] [id number] 24 May, 2015 [place] [address] [id number] Apr, [place] [address] [address] Apr, Irregular menses N92.6 ; BMI 40.0-44.9, adult Z68.41 ; Pre-diabetes R73.09 ; Encounter for counseling regarding contraception Z30.9 and Family history of diabetes mellitus Z83.3 [place] [address] [address] 07 Apr, 2015 Amenorrhea N91.2 ; Female hi rsutism L68.0 and History of irregular menstrual bleeding Z87.42 [place] [address] [id number] 06 Apr, 2015 Amenorrhea N91.2 ; Body mass index (BMI) of 40.1-44.9 in adult Z68.41 ; Female hirsutism L68.0 ; History of irregular menstrual bleeding Z87.42 ; Encounter for counseling regarding contraception Z30.9 and Weight gain R63.5 [place] [address] [id number] Mar, 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 and Capsulitis M77.9 [facility] [address] [id number] [address] [place] [address] Jan, Foot pain, right M79.671 [facility] [address] [id number] [address] [place] [id number] 15 Jan, 2015 Foot pain, right M79.671 [facility] [address] [id number] [address] [place] [address] Jan, Foot pain, right M79.671 [facility] [address] [id number] [address] [place] [address] Jul, [facility] [address] [id number] [address] [place] [address] Jul, [facility] [address] [id number] [address] [place] [address] May, [facility] [address] [id number] [address] [place] [address] May, [facility] [address] [id number] [address] [place] [id number] May, [facility] [address] [id number] [address] [place] [id number] May, [facility] [address] [id number] [address] [place] [id number] Apr, [facility] [address] [id number] [address] [place] [id number] Apr, [facility] [address] [id number] [address] [place] [phone] Apr, [facility] [address] [id number] [address] [place] [phone] Apr, [facility] [address] [id number] [address] [place] [id number] Mar, [facility] [address] [id number] [address] [place] [id number] 29 Mar, 2014 [facility] [address] [id number] [address] [place] [address], [place] [address] Mar, [facility] [address] [id number] [address] [place] [address], [place] [address] Mar, [facility] [address] [id number] [address] [place] [address], [place] [address] Mar, [facility] [address] [id number] [address] [place] [address], [place] [address] Mar, [facility] [address] [id number] [address] [place] [address], [place] [address] Mar, [facility] [address] [id number] [address] [place] [address], [place] [address] Mar, [facility] [address] [id number] [address] [place] [address], [place] [address] 15 Mar, 2014 [facility] [address] [id number] [address] [place] [address], [place] [address] Mar, [facility] [address] [id number] [address] [place] [address], [place] [address] Mar, [facility] [address] [id number] [address] [place] [address], [place] [address] Mar, [facility] [address] [id number] [address] [place] [address], [place] [address] Nov, [facility] [address] [id number] [address] [place] [address], [place] [address] Nov, [facility] [address] [id number] [address] [place] [address], [place] [address] Apr, [facility] [address] [id number] [address] [place] [address], [place] [address] Mar, [facility] [address] [id number] [address] [place] [address], [place] [address] Mar, [facility] [address] [id number] [address] [place] [id number] Mar, [facility] [address] [id number] [address] [place] [phone] Mar, [facility] [address] [id number] [address] [place] [id number] Feb, [facility] [address] [id number] [address] [place] [id number] Feb, [facility] [address] [id number] [address] [place] [id number] August, [facility] [address] [id number] [address] [place] [id number] Mar, [facility] [address] [id number] [address] [place] [phone] Jan, [facility] [address] [id number] [address] [place] [id number] Jan, IMMUNIZATIONS No Known Immunizations SOCIAL HISTORY Never Assessed REASON FOR VISIT PLAN OF CARE VITAL SIGNS MEDICATIONS No Known Medications RESULTS No Results PROCEDURES No Known procedures INSTRUCTIONS MEDICATIONS ADMINISTERED No Known Medications
--- OUTSIDE RECORDS SUMMARY | 2019-09-19 19:19 | XMS REPORT ---
Author Author Dejah CASTRO Organization [facility] Address [address] [place] [address] Care Team Providers Care Recruiting And Selection Consultant Name Role Phone PETROS CASTRO Unavailable PROBLEMS Type Condition ICD9-CM Code UHZ71-IA Code Onset Dates Condition S tatus SNOMED Code Problem History of irregular menstrual bleeding Z87.42 Active 338704608 Problem Encounter for counseling regarding contraception Z 30.9 Active 66647578 Problem Lumbago with sciatica, left side M54.42 Active 906715175 Problem Lumbago with sciatica, right side M54.41 Active 433472170701912 Problem Female hirsutism L68.0 Active 698 51995 Problem Body mass index (BMI) of 40.1-44.9 in adult Z68.41 Active 077949003 Problem BMI 40.0-44.9, adult Z68.41 Active 018438968 Problem Pre-diabetes R73.09 Active 5536841 ALLERGIES No Information ENCOUNTERS Encounter Location Date Diagnosis [facility] [address] [place] [id number] [address] [place] [id number] Nov, Thrush, oral B37.0 and Tatto o reaction L92.3 [facility] [id number] [address] [place] [address] August, Pharyngitis due to other org anism J02.8 [facility] [address] [facility] [address] [facility] [id number] [address] [place] [address] August, Pharyngitis, unspecified isela ology J02.9 and Sore throat J02.9 [facility] [address] [facility] [id number] [address] [place] [address] Jun, Lumbago with sciatica, left side M54.42 and Lumbago with sciatica, right side M54.41 [place] [address] [address] 15 May, 2016 Pain with urination R30.9 an d Vaginal discharge N89.8 [place] [address] [address] Apr, Acute non-recurrent maxillar y sinusitis J01.00 ; Cough R05 and Pre- diabetes R73.09 [place] [address] [address] Feb, [place] [address] [address] 24 May, 2015 [place] [address] [address] Apr, [place] [address] [address] Apr, Irregular menses N92.6 ; BMI 40.0-44.9, adult Z68.41 ; Pre-diabetes R73.09 ; Encounter for counseling regarding contraception Z30.9 and Family history of diabetes mellitus Z83.3 [place] [address] [address] 07 Apr, 2015 Amenorrhea N91.2 ; Female hi rsutism L68.0 and History of irregular menstrual bleeding Z87.42 [place] [address] [address] 06 Apr, 2015 Amenorrhea N91.2 ; Body mass index (BMI) of 40.1-44.9 in adult Z68.41 ; Female hirsutism L68.0 ; History of irregular menstrual bleeding Z87.42 ; Encounter for counseling regarding contraception Z30.9 and Weight gain R63.5 [place] [address] [address] Mar, 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 and Capsulitis M77.9 [facility] [address] [id number] [address] [place] [address] Jan, Foot pain, right M79.671 [facility] [address] [id number] [address] [place] [address] 15 Jan, 2015 Foot pain, right M79.671 [facility] [address] [id number] [address] [place] [address] Jan, Foot pain, right M79.671 [facility] [address] [id number] [address] [place] [address], [place] [address] Jul, [facility] [address] [id number] [address] [place] [address] Jul, [facility] [address] [id number] [address] [place] [address] May, [facility] [address] [id number] [address] [place] [address] May, [facility] [address] [id number] [address] [place] [address] May, [facility] [address] [id number] [address] [place] [address] May, [facility] [address] [id number] [address] [place] [address] Apr, [facility] [address] [id number] [address] [place] [address] Apr, [facility] [address] [id number] [address] [place] [address] Apr, [facility] [address] [id number] [address] [place] [address] Apr, [facility] [address] [id number] [address] [place] [address] Mar, [facility] [address] [id number] [address] [place] [address] 29 Mar, 2014 [facility] [address] [id number] [address] [place] [address], [place] [address] Mar, [facility] [address] [id number] [address] [place] [address], [place] [address] Mar, [facility] [address] [id number] [address] [place] [address], [place] [address] Mar, [facility] [address] [id number] [address] [place] [address], [place] [address] Mar, [facility] [address] [id number] [address] [place] [address], [place] [address] Mar, [facility] [address] [id number] [address] [place] [address], [place] [address] Mar, [facility] [address] [id number] [address] [place] [address], [place] [address] 15 Mar, 2014 [facility] [address] [id number] [address] [place] [address], [place] [address] Mar, [facility] [address] [id number] [address] [place] [address], [place] [address] Mar, [facility] [address] [id number] [address] [place] [address], [place] [address] Mar, [facility] [address] [id number] [address] [place] [address], [place] [address] Nov, [facility] [address] [id number] [address] [place] [address], [place] [address] Nov, [facility] [address] [id number] [address] [place] [address], [place] [address] Apr, [facility] [address] [id number] [address] [place] [address], [place] [address] Mar, [facility] [address] [id number] [address] [place] [address], [place] [address] Mar, [facility] [address] [id number] [address] [place] [address] Mar, [facility] [address] [id number] [address] [place] [address] Mar, [facility] [address] [id number] [address] [place] [address] Feb, [facility] [address] [id number] [address] [place] [address] Feb, [facility] [address] [id number] [address] [place] [address] August, [facility] [address] [id number] [address] [place] [address] Mar, [facility] [address] [id number] [address] [place] [address] Jan, [facility] [address] [id number] [address] [place] [address] Jan, IMMUNIZATIONS No Known Immunizations SOCIAL HISTORY Never Assessed REASON FOR VISIT PLAN OF CARE VITAL SIGNS Height 66 in 2011-05-15 Weight 174.2 lbs 2011-05-15 Temperature 97.3 degrees Fahrenheit 2011-05-15 Heart Rate 72 bpm 2011-05-15 Respiratory Rate 18 2011-05-15 Blood pressure systolic 108 mmHg 2011-05-15 Blood pressure diastolic 72 mmHg 2011-05-15 MEDICATIONS No Known Medications RESULTS No Results PROCEDURES No Known procedures INSTRUCTIONS MEDICATIONS ADMINISTERED No Known Medications
--- OUTSIDE RECORDS SUMMARY | 2019-09-19 19:20 | XMS REPORT | Continuity of Care Document ---
Demographics Preferred Language Unknown Marital Status Unknown [employer] Affiliation Unknown Race Unknown Ethnic Group Unknown Author Organization Unknown Address Unknown Phone Unavailable Allergies Active Description Code Type Severity Reaction Onset Reported/Identified Relationship to Patient Clinical Status Yes No Known Drug Allergies [id number] Drug Allergy Unknown N/A 11/11/2011 Medications There is no data. Problems Date Dx Coded Attending Type Code Diagnosis Diagnosed By 08/20/2008 MELL PATEL DO 462 PHARYNGITIS 08/20/2008 ALFONSO CANO HECTOR R 4 62 PHARYNGITIS 08/20/2008 ALFONSO CANO, HECTOR R 4 62 PHARYNGITIS 10/20/2008 MELL PATEL DO K 300.00 anxiety 10/20/2008 ALFONSO CANO, HECTOR R 300.00 anxiety 10/20/2008 ALFONSO CANO, HECTOR R 300.00 anxiety 04/20/2009 MELL PATEL DO K 465.9 UPPER RESPIRATORY INFECTION 04/20/2009 YVROSE PATEL DOA K 780.6 FEVER 04/20/2009 YVROSE PATEL DOA K 786.2 COUGH 04/20/2009 ALFONSO ASSOCIATE DIRECTOR OF SALES, HECTOR R 465.9 UPPER RESPIRATORY INFECTION 04/20/2009 ALFONSO ASSOCIATE DIRECTOR OF SALES, HECTOR R 780.6 FEVER 04/20/2009 ALFONSO ASSOCIATE DIRECTOR OF SALES, HECTOR R 786.2 COUGH 04/20/2009 ALFONSO ASSOCIATE DIRECTOR OF SALES, HECTOR R 465.9 UPPER RESPIRATORY INFECTION 04/20/2009 ALFONSO ASSOCIATE DIRECTOR OF SALES, HECTOR R 780.6 FEVER 04/20/2009 ALFONSO CANO, HECTOR R 786.2 COUGH 12/25/2010 Ot 789.00 12/28/2010 MELL PATEL DO K 564.1 IRRITABLE BOWEL SYNDROME 12/28/2010 YVROSE PATEL DOA K 626.8 DUB 12/28/2010 YVROSE PATEL DOA 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 12/28/2010 ALFONSO CANO HECTOR R 564.1 IRRITABLE BOWEL SYNDROME 12/28/2010 ALFONSO CANO, HECOTR R 626.8 DUB 12/28/2010 ALFONSO CANO, HECTOR R 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 12/28/2010 ALFONSO CANO, HECTOR R 564.1 IRRITABLE BOWEL SYNDROME 12/28/2010 HECTOR HAMILTON APRN R 626.8 DUB 12/28/2010 HECTOR HAMILTON APRN R 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 01/30/2011 MELL PATEL DO 626.2 EXCESSIVE OR FREQUENT MENSTRUATION 01/30/2011 NEO HAMILTON APRNINA R 626.2 EXCESSIVE OR FREQUENT MENSTRUATION 01/30/2011 NEO HAMILTON APRNINA R 626.2 EXCESSIVE OR FREQUENT MENSTRUATION 02/28/2011 MELL PATEL DO K 787.02 NAUSEA ALONE 02/28/2011 ALFONSO AGUILAN HECTOR R 787.02 NAUSEA ALONE 02/28/2011 ALFONSO AGUILAN HECTOR R 787.02 NAUSEA ALONE 04/09/2011 MELL PATEL DO K 461.9 SINUSITIS ACUTE 04/09/2011 MELL PATEL DO K 466.0 BRONCHITIS, ACUTE 04/09/2011 NEO HAMILTON APRNINA R 461.9 SINUSITIS ACUTE 04/09/2011 NEO HAMILTON APRNINA R 466.0 BRONCHITIS, ACUTE 04/09/2011 NEO HAMILTON APRNINA R 461.9 SINUSITIS ACUTE 04/09/2011 ALFONSO CANO HECTOR R 466.0 BRONCHITIS, ACUTE 04/17/2011 MELL PATEL DO K 112.1 CANDIDIASIS OF VULVA AND VAGINA 04/17/2011 NEO HAMILTON APRNINA R 112.1 CANDIDIASIS OF VULVA AND VAGINA 04/17/2011 NEO HAMILTON APRNINA R 112.1 CANDIDIASIS OF VULVA AND VAGINA 05/15/2011 MELL PATEL DO 008.8 INTESTINAL INFECTION DUE TO OTHER ORGANISM NOT ELSEWHERE CLASSIFIED 05/15/2011 HECTOR HAMILTON APRN R 008.8 INTESTINAL INFECTION DUE TO OTHER ORGANISM NOT ELSEWHE RE CLASSIFIED 05/15/2011 HECTOR HAMILTON APRN R 008.8 INTESTINAL INFECTION DUE TO OTHER ORGANISM NOT ELSEWHE RE CLASSIFIED 10/22/2011 Ot 992.5 10/22/2011 Ot E000.8 10/22/2011 Ot E849.0 10/22/2011 Ot E900.9 11/11/2011 Ot 648.93 11/11/2011 Ot 789.00 12/16/2011 Ot 112.1 12/16/2011 Ot 625.9 12/16/2011 Ot 647.83 12/16/2011 Ot 648.93 04/11/2012 Ot 644.03 07/09/2012 Ot 650 07/09/2012 Ot V06.1 07/09/2012 Ot V27.0 12/21/2013 PATEL MELL SAXENA K 788.1 DYSURIA 12/21/2013 HECTOR HAMILTON APRN R 788.1 DYSURIA 12/21/2013 HECTOR HAMILTON APRN R 788.1 DYSURIA 04/07/2014 HECTOR HAMILTON APRN 719.46 PAIN IN JOINT INVOLVING LOWER LEG 04/07/2014 HECTOR HAMILTON APRN 719.46 PAIN IN JOINT INVOLVING LOWER LEG 04/19/2014 Ot 649.63 04/19/2014 Ot 649.63 04/19/2014 Ot V28.89 04/19/2014 NOELLE YEN APRN Ot 465 .9 ACUTE URI NOS 04/19/2014 NOELLE YEN APRN Ot 786 .2 COUGH 04/19/2014 Ot 649.63 04/19/2014 Ot 649.63 04/19/2014 Ot V28.89 04/20/2014 HECTOR HAMILTON APRN 780.60 FEVER, UNSPECIFIED 06/26/2019 NOELLE YEN APRN Ot S60.221A CONTUSION OF RIGHT HAND, INITIAL ENCOUNT 06/26/2019 NOELLE YEN APRN Ot W23.1XXA CAUGHT, CRUSH, JAMMED, OR PINCHED BETW S Procedures Code Description [place] [address] UA W / CULTURE IF INDICATED 12/21/2013 41693 XRAY KNEE LEFT, 1 OR 2 VIEWS 04/07/2014 05687 ROUT INE VENIPUNCTURE 04/20/2014 66673 CMP 04/20/2014 20580 CBC 04/20/2014 17700 MYCO PLASMA ANTIBODY 04/20/2014 07925 MONO TEST (IN-HOUSE) 04/20/2014 Results Test Result Range CBC With Differential/Platelet - 7 12:17 WBC 7.3 x10E3/uL 3.4-10.8 RBC 5.29 x10E6/uL 3.77-5.28 Hemoglobin 14.5 g/dL 11.1-15.9 Hematocrit 45.2 % 34.0-46.6 MCV 85 fL 79-97 MCH 27.4 pg 26.6-33.0 MCHC 32.1 g/dL 31.5-35.7 RDW 13.5 % 12.3-15.4 Platelets 297 x10E3/uL 150-379 Neutrophils 42 % Lymphs 44 % Monocytes 8 % Eos 5 % Basos 1 % Neutrophils (Absolute) 3.1 x10E3/uL 1.4- 7.0 Lymphs (Absolute) 3.2 x10E3/uL 0.7-3.1 Monocytes(Absolute) 0.6 x10E3/uL 0.1-0.9 Eos (Absolute) 0.4 x10E3/uL 0.0-0.4 Baso (Absolute) 0.1 x10E3/uL 0.0-0.2 Immature Granulocytes 0 % Immature Grans (Abs) 0.0 x10E3/uL 0.0-0. 1 Comp. Metabolic Panel (14) - 05/03/16 12 :17 Glucose, Serum 101 mg/dL 65-99 BUN 10 mg/dL 6-20 Creatinine, Serum 0.80 mg/dL 0.57-1.00 eGFR If NonAfricn Am 101 mL/min/1.73 >59 eGFR If Africn Am 116 mL/min/1.73 >5 9 BUN/Creatinine Ratio 13 8-20 Sodium, Serum 140 mmol/L 134-144 Potassium, Serum 4.8 mmol/L 3.5-5.2 Chloride, Serum 101 mmol/L 96-106 Carbon Dioxide, Total 25 mmol/L 18-29 Calcium, Serum 9.1 mg/dL 8.7-10.2 Protein, Total, Serum 6.8 g/dL 6.0-8.5 Albumin, Serum 4.3 g/dL 3.5-5.5 Globulin, Total 2.5 g/dL 1.5-4.5 A/G Ratio 1.7 1.1-2.5 Bilirubin, Total 0.3 mg/dL 0.0-1.2 Alkaline Phosphatase, S 88 IU/L 39-117 AST (SGOT) 19 IU/L 0-40 ALT (SGPT) 18 IU/L 0-32 Lipid Panel - 05/03/16 12:17 Cholesterol, Total 158 mg/dL 100-199 Triglycerides 90 mg/dL 0-149 HDL Cholesterol 35 mg/dL >39 VLDL Cholesterol Heladio 18 mg/dL 5-40 LDL Cholesterol Calc 105 mg/dL 0-99 Genital Culture, Routine - 06/13/16 17:2 5 Genital Culture, Routine Note Encounters ACCT No. Visit Date/Time Discharge Status Pt. Type Provider Facility Loc./Unit Complaint [id number] 05/04/2016 07:05:00 Document Registration [id number] 09/26/2017 14:40:00 09/26/2017 23:59:5 9 CLS Outpatient MARCELLUS PRECIADO [facility] [id number] 05/28/2014 09:20:00 05/28/2014 23:59: 59 CLS Outpatient HECTOR HAMILTON APRN [id number] 04/20/2014 17:20:00 04/20/2014 23:59: 59 CLS Outpatient HECTOR HAMILTON APRN [id number] 04/07/2014 14:13:00 04/07/2014 23:59: 59 CLS Outpatient HECTOR HAMILTON APRN [id number] 12/21/2013 16:06:00 12/21/2013 23:59: 59 CLS Outpatient MELL PATEL DO [id number] 06/16/2016 17:06:00 Document Registration [id number] 06/26/2019 18:50:00 020 20:32:00 DIS Emergency NOELLE YEN APRN [facility] ER INJ RT HAND [id number] 04/19/2014 19:49:00 014 21:06:00 DIS Emergency NOELLE YEN APRN [facility] ER FEVER;SORE THROAT [id number] 07/06/2012 19:06:00 Document Registration [id number] 05/05/2012 14:08:00 Document Registration [id number] 04/11/2012 22:19:00 Document Registration [id number] 02/22/2012 13:55:00 Document Registration [id number] 12/16/2011 11:32:00 Document Registration [id number] 11/19/2011 13:08:00 Document Registration [id number] 11/11/2011 19:08:00 Document Registration [id number] 10/22/2011 16:01:00 Document Registration [id number] 12/25/2010 18:03:00 Document Registration
--- NOTE | 2019-09-19 19:42 | ED General ---
General Chief Complaint: Abdominal/GI Problems Stated Complaint: LOW BLOOD SUGAR Nursing Triage Note: C/O FEELING LIGHT HEADED, NAUSEA, HEADACHE, CLAMMY TODAY. Nursing Sepsis Screen: No Definite Risk Source of Information: Patient Exam Limitations: No Limitations History of Present Illness Date Seen by Provider: September 19, 2019 Time Seen by Provider: 19:19 Initial Comments The patient presents to ER by private conveyance with chief complaint of general malaise, tiredness, feeling weak cool and clammy. She does not have any lateralizing symptoms. She says she just woke up feeling this way. She thought maybe she had low blood sugar and try to use one of her mothers glucose strips unsuccessfully. She does not have a history of diabetes but several years ago when she followed at [facility] she was told she was prediabetic. She does not follow with a doctor presently. She did use Dr. Vazquez for her pregnancies and had no problems with gestational diabetes. She's had no fevers, chills, cough, shortness of breath, chest pain, nausea, vomiting, diarrhea, constipation, dysuria. Her last missed her period was one week ago but she's been having a lot of breakthrough bleeding especially with any exercise. She admits to always having irregular periods. She does not take any medications or control. Denies Smoking, drinking or drugs. No occupational exposures. She works at the [employer] and has had no sick contacts. No recent travel. She's been able to eat today and her last oral intake was noon she had [employer]. She doesn't admit to significant weight gain in the past year or so. Allergies and Home Medications Allergies Coded Allergies: No Known Drug Allergies (Unverified , 11/11/11) Home Medications No Active Prescriptions or Reported Meds Patient Home Medication List Home Medication List Reviewed: Yes Review of Systems Review of Systems Constitutional: No chills, No diaphoresis, No dizziness, No fever; malaise EENTM: No ear discharge, No ear pain Respiratory: No cough, No short of breath Cardiovascular: No chest pain, No edema Gastrointestinal: No abdominal pain, No constipation, No diarrhea, No nausea Genitourinary: No discharge, No dysuria : No Musculoskeletal: No back pain, No joint pain Skin: No pruritus, No rash Psychiatric/Neurological: Denies Anxiety, Denies Depressed, Denies Headache Hematologic/Lymphatic: Denies Anemia, Denies Blood Clots All Other Systems Reviewed Negative Unless Noted: Yes Past Rzrhjyz-Pzxyjb-Qaztob Hx Patient Social History Alcohol Use: Denies Use Recreational Drug Use: No Smoking Status: Never a Smoker 2nd Hand Smoke Exposure: No Recent Foreign Travel: No Contact w/Someone Who Travel: No Recent Infectious Disease Expo: No Recent Hopitalizations: No Physical Abuse: No Sexual Abuse: No Mistreated: No Fear: No Immunizations Up To Date Tetanus Booster (TDap): More than 5yrs PED Vaccines UTD: No Seasonal Allergies Seasonal Allergies: No Past Medical History Surgeries: No Respiratory: No Cardiac: No Neurological: No : No Last Menstrual Period: September 12, 2019 Reproductive Disorders: No Gastrointestinal: No Musculoskeletal: No Endocrine: No HEENT: No Cancer: No Psychosocial: No Integumentary: No Blood Disorders: No Adverse Reaction/Blood Tranf: No Physical Exam Vital Signs Vital Signs - First Documented 09/19/19 19:25 Temp 37.0 Pulse 80 Resp 18 B/P (MAP) 179/105 (129) Pulse Ox 96 O2 Delivery Room Air Capillary Refill : Less Than 3 Seconds Height, Weight, BMI Height: 5'6" Weight: 200lbs. oz. [id number]; 43.00 BMI Method:Stated General Appearance: No Apparent Distress, Obese Eyes: Bilateral Eye Normal Inspection, Bilateral Eye PERRL, Bilateral Eye EOMI HEENT: PERRL/EOMI, TMs Normal, Normal ENT Inspection, Pharynx Normal, Moist Mucous Membranes Neck: Full Range of Motion, Normal Inspection, Non Tender Respiratory: Chest Non Tender, Lungs Clear, Normal Breath Sounds, No Accessory Muscle Use, No Respiratory Distress Cardiovascular: Regular Rate, Rhythm, No Edema, Normal Peripheral Pulses Extremity: Normal Capillary Refill, Normal Inspection, Normal Range of Motion Neurologic/Psychiatric: Alert, Oriented x3, No Motor/Sensory Deficits, Normal Mood/Affect Skin: Normal Color, Warm/Dry Progress/Results/Core Measures Suspected Sepsis Recent Fever Within 48 Hours: No Infection Criteria Present: None New/Unexplained Altered Menta: No Sepsis Screen: No Definite Risk SIRS Temperature: Pulse: 80 Respiratory Rate: 18 Laboratory Tests 09/19/19 19:40: White Blood Count 10.9 Blood Pressure 179 /105 Mean: 129 Laboratory Tests 09/19/19 19:40: Creatinine 0.81, Platelet Count 363, Total Bilirubin 0.2 Results/Orders Lab Results Laboratory Tests Test 09/19/19 19:31 09/19/19 19:33 09/19/19 19:40 Range/Units Glucometer 112 H 70-110 MG/DL Urine Color YELLOW Urine Clarity CLEAR Urine pH 6.5 5-9 Urine Specific [place] 1.015 L 1.016-1.022 Urine Protein NEGATIVE NEGATIVE Urine Glucose (UA) NEGATIVE NEGATIVE Urine Ketones NEGATIVE NEGATIVE Urine Nitrite NEGATIVE NEGATIVE Urine Bilirubin NEGATIVE NEGATIVE Urine Urobilinogen 0.2 < = 1.0 MG/DL Urine Leukocyte Esterase NEGATIVE NEGATIVE Urine RBC (Auto) 3+ H NEGATIVE Urine RBC 2-5 H /HPF Urine WBC NONE /HPF Urine Squamous Epithelial Cells NONE /HPF Urine Crystals NONE /LPF Urine Bacteria FEW H /HPF Urine Casts NONE /LPF Urine Mucus NEGATIVE /LPF Urine Culture Indicated YES White Blood Count 10.9 4.3-11.0 10^3/uL Red Blood Count 4.98 4.35-5.85 10^6/uL Hemoglobin 13.7 11.5-16.0 G/DL Hematocrit 42 35-52 % Mean Corpuscular Volume 84 80-99 FL Mean Corpuscular Hemoglobin 28 25-34 PG Mean Corpuscular Hemoglobin Concent 33 32-36 G/DL Red Cell Distribution Width 14.1 10.0-14.5 % Platelet Count 363 130-400 10^3/uL Mean Platelet Volume 10.0 7.4-10.4 FL Neutrophils (%) (Auto) 56 42-75 % Lymphocytes (%) (Auto) 33 12-44 % Monocytes (%) (Auto) 8 0-12 % Eosinophils (%) (Auto) 4 0-10 % Basophils (%) (Auto) 1 0-10 % Neutrophils # (Auto) 6.0 1.8-7.8 X 10^3 Lymphocytes # (Auto) 3.6 1.0-4.0 X 10^3 Monocytes # (Auto) 0.8 0.0-1.0 X 10^3 Eosinophils # (Auto) 0.4 H 0.0-0.3 10^3/uL Basophils # (Auto) 0.1 0.0-0.1 10^3/uL Sodium Level 138 135-145 MMOL/L Potassium Level 4.0 3.6-5.0 MMOL/L Chloride Level 104 98-107 MMOL/L Carbon Dioxide Level 24 21-32 MMOL/L Anion Gap 10 5-14 MMOL/L Blood Urea Nitrogen 12 7-18 MG/DL Creatinine 0.81 0.60-1.30 MG/DL Estimat Glomerular Filtration Rate > 60 BUN/Creatinine Ratio 15 Glucose Level 116 H 70-105 MG/DL Calcium Level 9.1 8.5-10.1 MG/DL Corrected Calcium 8.9 8.5-10.1 MG/DL Total Bilirubin 0.2 0.1-1.0 MG/DL Aspartate Amino Transf (AST/SGOT) 26 5-34 U/L Alanine Aminotransferase (ALT/SGPT) 35 0-55 U/L Alkaline Phosphatase 109 40-136 U/L C-Reactive Protein High Sensitivity 1.06 H 0.00-0.50 MG/DL Total Protein 7.4 6.4-8.2 GM/DL Albumin 4.2 3.2-4.5 GM/DL Thyroid Stimulating Hormone (TSH) 2.90 0.35-4.94 UIU/ML Group A Streptococcus Screen NEGATIVE NEGATIVE Micro Results Microbiology 09/19/19 Influenza Types A,B Antigen (AMELIA) - Final, Complete My Orders Orders - VLADIMIR MOORE Ua Culture If Indicated (09/19/19 19:36) Urine Bedside (09/19/19 19:36) Cbc With Automated Diff (09/19/19 19:36) Comprehensive Metabolic Panel (09/19/19 19:36) Rapid Strep A Screen (09/19/19 19:36) Influenza A And B Antigens (09/19/19 19:36) Hs C Reactive Protein (09/19/19 19:36) Thyroid Stimulating Hormone (09/19/19 19:42) Accucheck Stat ONCE (09/19/19 19:51) Urine Culture (09/19/19 19:33) Vital Signs/I&O 09/19/19 19:25 Temp 37.0 Pulse 80 Resp 18 B/P (MAP) 179/105 (129) Pulse Ox 96 O2 Delivery Room Air Capillary Refill : Less Than 3 Seconds Blood Pressure Mean: 129 Progress Note : Time: 19:41 Progress Note Acute onset of malaise and weakness could indicate infection, inflammatory disorder. We'll also check TSH, CRP, urinalysis and . Departure Impression Primary Impression: Fatigue Qualified Codes: R53.83 - Other fatigue Disposition: 01 HOME, SELF-CARE Condition: Stable Departure-Patient Inst. Decision time for Depature: 20:54 Referrals: [facility]/ (PCP/Family) Primary Care Physician Patient Instructions: Fatigue (DC) Add. Discharge Instructions: While we were unable to find anything dangerous about the symptoms you presented with in our workup in the ER today I would highly recommend you follow-up with the primary care doctor of your choice. There are other things they can go looking for. Return to the ER immediately if you have shortness of breath, chest pain, or other worrisome symptoms. You should discuss with a primary care doctor or lines tender about your intermittent spotting as well as weight gain and how these might be further assessed. One possibility is this may be a prodromal syndrome before a viral infection and you may start to show symptoms over the next few days. All discharge instructions reviewed with patient and/or family. Voiced understanding. Scripts No Active Prescriptions or Reported Meds Work/School Note: Work Release Form Date Seen in the Emergency Department: September 19, 2019 Return to Work: September 21, 2019 Restrictions: No Restrictions VLADIMIR MOORE September 19, 2019 19:41
[2019-09-19 19:52] LABS: BILIRUBIN,URINE NEGATIVE (NEGATIVE); CLARITY,URINE CLEAR; COLOR,URINE YELLOW; GLUCOSE, URINE (UA) NEGATIVE (NEGATIVE); KETONES,URINE NEGATIVE (NEGATIVE); LEUKOCYTE ESTERASE ,URINE NEGATIVE (NEGATIVE); NITRITE,URINE NEGATIVE (NEGATIVE); PH,URINE 6.5 (5-9); PROTEIN,URINE NEGATIVE (NEGATIVE)
[2019-09-19 19:54] LABS: BASOPHILS # (AUTO) 0.1 10^3/uL (0.0-0.1); BASOPHILS % (AUTO) 1 % (0-10); EOSINOPHILS # (AUTO) 0.4 10^3/uL (0.0-0.3); EOSINOPHILS % (AUTO) 4 % (0-10); HEMATOCRIT 42 % (35-52); HEMOGLOBIN 13.7 G/DL (11.5-16.0); LYMPHOCYTES # (AUTO) 3.6 X 10^3 (1.0-4.0); LYMPHOCYTES % (AUTO) 33 % (12-44); MEAN CORPUSCULAR HEMOGLOBIN 28 PG (25-34); MEAN CORPUSCULAR HGB CONC 33 G/DL (32-36); MEAN CORPUSCULAR VOLUME 84 FL (80-99); MONOCYTES # (AUTO) 0.8 X 10^3 (0.0-1.0); MONOCYTES % (AUTO) 8 % (0-12); NEUTROPHILS % (AUTO) 56 % (42-75); PLATELET COUNT 363 10^3/uL (130-400); RED CELL DISTRIBUTION WIDTH 14.1 % (10.0-14.5); WHITE BLOOD COUNT 10.9 10^3/uL (4.3-11.0)
[2019-09-19 20:16] LABS: ALBUMIN 4.2 GM/DL (3.2-4.5); CHLORIDE 104 MMOL/L (98-107); SODIUM 138 MMOL/L (135-145)
[2019-09-19 20:17] LABS: CALCIUM 9.1 MG/DL (8.5-10.1)
[2019-09-19 20:18] LABS: GLUCOSE 116 MG/DL (70-105); TOTAL PROTEIN 7.4 GM/DL (6.4-8.2)
[2019-09-19 20:20] LABS: BILIRUBIN,TOTAL 0.2 MG/DL (0.1-1.0); CARBON DIOXIDE 24 MMOL/L (21-32)
[2019-09-19 20:22] LABS: ALKALINE PHOSPHATASE 109 U/L (40-136); CREATININE SERUM 0.81 MG/DL (0.60-1.30); GFR ESTIMATED > 60
[2019-09-19 20:23] LABS: BUN/CREATININE RATIO 15
[2019-09-19 20:25] LABS: ALANINE AMINOTRANSFERASE 35 U/L (0-55)
[2019-09-19 20:28] LABS: BACTERIA,URINE FEW /HPF
[2019-09-19 21:02] VITALS: BP 170/90
== END 2019-09-19 21:04 | disposition home or self-care (01) ==
LOC: EDUNIT# 19:12 → ER 19:14
DX: R53.83 Other fatigue (principal)
CPT/HCPCS: 36415; 80053; 81000; 82962; 84443; 84703; 85025; 86141; 87088; 87430; 87804